=== PATIENT | male | born 1955 | race Two or more races ===

== ENCOUNTER → 2018-10-19 | Day surgery (SDC) | payer OTHER ==
[~2018-10-19] VITALS: Ht 160 cm; Wt 76.7 kg
[2018-10-19 07:01] VITALS: BP 133/69
[2018-10-19 11:15] VITALS: BP 123/67
== END | disposition home or self-care (01) ==
LOC: GI 06:13 → OR 08:00 → GI 08:00
DX: Z12.11 Encounter for screening for malignant neoplasm of colon (principal); K63.5 Polyp of colon; K57.30 Diverticulosis of large intestine without perforation or abscess without bleeding; K64.8 Other hemorrhoids; M19.90 Unspecified osteoarthritis, unspecified site; E11.22 Type 2 diabetes mellitus with diabetic chronic kidney disease; N18.6 End stage renal disease; F41.9 Anxiety disorder, unspecified; E66.9 Obesity, unspecified; Z99.2 Dependence on renal dialysis; Z79.899 Other long term (current) drug therapy; Z79.4 Long term (current) use of insulin; Z68.30 Body mass index [BMI] 30.0-30.9, adult
CPT/HCPCS: 45378; 45385; J1200; J1610; J2250; J2310; J3010; J3490